=== PATIENT | male | born 1960 | race Caucasian/White ===

== ENCOUNTER 2017-09-02 13:53 | Emergency (ER) | payer OTHER ==
[2017-09-02] MEDS ORDERED: Enoxaparin 40 MG/0.4 ML Syringe ONE (14:52)
[2017-09-02] MEDS ORDERED: cefTRIAXone 1 GM Vial ONE (14:52)
[2017-09-02] MEDS ORDERED: Enoxaparin 40 MG/0.4 ML Syringe SUBCUT ONE (14:59)
[2017-09-02] MEDS ORDERED: cefTRIAXone 1 GM Vial IM ONE (15:00)
[2017-09-02] MEDS ORDERED: Cephalexin 500 MG Cap ONE (15:20)
== END 2017-09-02 15:15 | disposition home or self-care (01) ==
LOC: LB.ED 13:53
DX: L03.115 Cellulitis of right lower limb (principal)
CPT/HCPCS: 96372; 99283-25; A9270-GY; J0696; J1650